=== PATIENT | female | born 1930 | race Caucasian/White ===

== ENCOUNTER 2022-06-23 01:55 | Observation (INO) ==
[2022-06-23] MEDS ORDERED: Mag Hydrox/Al Hydrox/Simeth 30 ML UDC PO PRN (10:02)
[2022-06-23] MEDS ORDERED: MOM Conc 10 ML UD.LIQ PO PRN (10:02)
[2022-06-23] MEDS ORDERED: Ondansetron 4 MG/2 ML VIAL IVP PRN (10:02)
[2022-06-23] MEDS ORDERED: Melatonin 3 MG TABLET PO PRN (10:02)
[2022-06-23] MEDS ORDERED: Acetaminophen 325 MG TABLET PO PRN (10:02)
[2022-06-23] MEDS ORDERED: Ondansetron ODT 4 MG TAB.RAPDIS SL PRN (10:02)
[2022-06-23] MEDS ORDERED: Naloxone 0.4 MG/ML INJ IVP PRN (10:02)
[2022-06-23] MEDS ORDERED: Nitroglycerin 0.4 MG TAB.SUBL SL PRN (10:06)
[2022-06-23] MEDS ORDERED: Bisacodyl 10 MG RECTAL SUPPOSITORY RC PRN (11:13)
[2022-06-23] MEDS ORDERED: Sennosides/Docusate Sodium TABLET PO PRN (11:13)
[2022-06-23] MEDS ORDERED: Lactulose Oral Soln 20 GM/30 ML UDC PO PRN (11:15)
[2022-06-23] MEDS: amLODIPine 5 MG TABLET PO SCH ×2 (12:43→20:21)
[2022-06-23] MEDS: Isosorbide MONOnitrate (24 HR) 30 MG TAB.ER.24H PO SCH ×3 (12:50→20:21)
[2022-06-23] MEDS: Aspirin Enteric Coated 81 MG Tablet PO SCH (12:50)
[2022-06-23] MEDS: Cholecalciferol (D-3) 1,000 UNIT (25MCG) TABLET PO SCH (12:50)
[2022-06-23] MEDS: *HR* HYDROcodone/Acet 5/325 mg TABLET PO PRN ×2 (12:53→20:21)
[2022-06-23] MEDS: polyethylene glycoL 3350 17 GM POWD.PACK PO SCH (12:53)
[2022-06-23 12:59] LABS: Bilirubin,Urine Negative (Negative); Blood,Urine Trace-lysed (Negative); Clarity,Urine Clear (Clear); Color,Urine Yellow (Yellow); Glucose,Urine (UA) Normal (Normal); Ketones,Urine Trace mg/dL (Negative); Leukocyte Esterase,Urine Small (Negative); Nitrite,Urine Negative (Negative); Protein,Urine 100 mg/dL (Neg-Trace); Specific Gravity,Urine 1.015 (1.010-1.025); Urobilinogen,Urine Normal (Normal)
[2022-06-23] MEDS: ALPRAZolam 0.5 MG TABLET PO PRN (20:21)
[2022-06-23] MEDS: estradioL 0.5 MG TABLET PO SCH (20:22)
[2022-06-24 04:04] LABS: Basophils % 0.6 %; Eosinophils # 0.1 K/mcL (0.0-0.6); Eosinophils % 2.2 %; Hematocrit 32.9 % (35.3-44.9); Hemoglobin 11.2 g/dL (11.5-15.4); Immature Granulocytes % 0.2 % (0-4); Lymphocytes % 36.6 %; Mean Corpuscular Hemoglobin 30.3 pg (28.0-33.3); Mean Corpuscular Volume 88.9 fL (83.0-100.0); Monocytes # 0.8 K/mcL (0.0-1.3); Monocytes % 14.2 %; Neutrophils # 2.5 K/mcL (1.6-8.9); Platelet Count 141 K/mcL (140-400); Red Cell Distribution Width 13.1 % (11.5-14.5); Segmented Neutrophils % 46.2 %; White Blood Count 5.4 K/mcL (4.3-11.1)
[2022-06-24 04:21] LABS: Albumin 3.2 g/dL (3.5-5.7); Albumin/Globulin Ratio 1.2 (1.1-2.2); Bilirubin,Total 0.3 mg/dL (0.3-1.0); Calcium 8.6 mg/dL (8.6-10.3); Globulin 2.6 g/dL (2.4-3.5); Magnesium 1.7 mg/dL (1.6-2.6); Potassium 3.2 mEq/L (3.5-5.1); Total Protein 5.8 g/dL (6.4-8.9)
[2022-06-24] MEDS: *HR* Enoxaparin 40 MG/0.4 ML SYRINGE SQ SCH (05:23)
[2022-06-24] MEDS: Isosorbide MONOnitrate (24 HR) 30 MG TAB.ER.24H PO SCH ×3 (08:38→21:00)
[2022-06-24] MEDS: Aspirin Enteric Coated 81 MG Tablet PO SCH (08:38)
[2022-06-24] MEDS: Cholecalciferol (D-3) 1,000 UNIT (25MCG) TABLET PO SCH (08:38)
[2022-06-24] MEDS: Ascorbic Acid 500 MG TABLET PO SCH (08:38)
[2022-06-24] MEDS: amLODIPine 5 MG TABLET PO SCH ×2 (08:38→21:01)
[2022-06-24] MEDS: polyethylene glycoL 3350 17 GM POWD.PACK PO SCH (08:39)
[2022-06-24] MEDS ORDERED: *HR* HYDROcodone/Acet 5/325 mg TABLET PO PRN (17:06)
[2022-06-24] MEDS: estradioL 0.5 MG TABLET PO SCH (21:00)
[2022-06-24] MEDS: Hydrocortisone Acetate 25 MG RECTAL SUPPOSITORY RC SCH (21:01)
[2022-06-24] MEDS: Preparation H Ointment 57 GM TUBE RC PRN (21:02)
[2022-06-25] MEDS: *HR* Enoxaparin 40 MG/0.4 ML SYRINGE SQ SCH (05:09)
[2022-06-25 05:25] LABS: Hematocrit 34.2 % (35.3-44.9); Hemoglobin 11.5 g/dL (11.5-15.4); Mean Corpuscular HGB Conc 33.6 g/dL (31.6-35.5); Mean Corpuscular Hemoglobin 30.2 pg (28.0-33.3); Mean Corpuscular Volume 89.8 fL (83.0-100.0); Mean Platelet Volume 11.2 fL (9.4-12.4); Platelet Count 158 K/mcL (140-400); Red Blood Count 3.81 M/mcL (3.82-4.97); Red Cell Distribution Width 12.8 % (11.5-14.5); White Blood Count 5.9 K/mcL (4.3-11.1)
[2022-06-25] MEDS: Cholecalciferol (D-3) 1,000 UNIT (25MCG) TABLET PO SCH (08:31)
[2022-06-25] MEDS: amLODIPine 5 MG TABLET PO SCH ×2 (08:31→20:22)
[2022-06-25] MEDS: Isosorbide MONOnitrate (24 HR) 30 MG TAB.ER.24H PO SCH ×3 (08:31→20:21)
[2022-06-25] MEDS: Ascorbic Acid 500 MG TABLET PO SCH (08:32)
[2022-06-25] MEDS: Hydrocortisone Acetate 25 MG RECTAL SUPPOSITORY RC SCH ×2 (08:32→20:22)
[2022-06-25] MEDS: Aspirin Enteric Coated 81 MG Tablet PO SCH (08:32)
[2022-06-25] MEDS: polyethylene glycoL 3350 17 GM POWD.PACK PO SCH (08:34)
[2022-06-25 11:55] LABS: Calcium 8.9 mg/dL (8.6-10.3); Magnesium 1.7 mg/dL (1.6-2.6)
[2022-06-25] MEDS: Preparation H Ointment 57 GM TUBE RC PRN (20:22)
[2022-06-25] MEDS: estradioL 0.5 MG TABLET PO SCH (20:22)
[2022-06-25] MEDS: ALPRAZolam 0.5 MG TABLET PO PRN (20:49)
[2022-06-26] MEDS: *HR* Enoxaparin 40 MG/0.4 ML SYRINGE SQ SCH (04:23)
[2022-06-26 07:48] VITALS: PULSE 60
[2022-06-26] MEDS ORDERED: lisinopriL 10 MG TABLET PO SCH (09:00)
[2022-06-26] MEDS: Cholecalciferol (D-3) 1,000 UNIT (25MCG) TABLET PO SCH (09:14)
[2022-06-26] MEDS: polyethylene glycoL 3350 17 GM POWD.PACK PO SCH (09:15)
[2022-06-26] MEDS: Aspirin Enteric Coated 81 MG Tablet PO SCH (09:15)
[2022-06-26] MEDS: amLODIPine 5 MG TABLET PO SCH (09:15)
[2022-06-26] MEDS: Isosorbide MONOnitrate (24 HR) 30 MG TAB.ER.24H PO SCH (09:15)
[2022-06-26] MEDS: Ascorbic Acid 500 MG TABLET PO SCH (09:15)
[2022-06-26] MEDS ORDERED: ALPRAZolam 0.5 MG TABLET PO PRN (10:50)
[2022-06-26] MEDS: Hydrocortisone Acetate 25 MG RECTAL SUPPOSITORY RC SCH (11:32)
[2022-06-26 11:42] VITALS: BP 123/61; RESP 18; TEMP 98.1; O2SAT 98
== END 2022-06-26 13:45 | disposition home or self-care (01) ==
LOC: INPGRE
PROVIDERS: ADMIT Student in an Organized Health Care Education/Training Program; ATTEND Family Medicine